=== PATIENT | female | born 1940 | race Caucasian/White ===

== ENCOUNTER → 2017-12-01 | Emergency (ER) | payer OTHER ==
[~2017-12-01] VITALS: Ht 157.5 cm; Wt 86.2 kg
[~2017-12-01] MED LIST: ATENOLOL25 MG; CLONAZEPAM0.5 MG PO; GLUCOTROL10 MG PO; HUMULIN 70100 UNIT/2; HYDROXYZINE HCL50 MG PO; LEVOTHROID25 MCG; LEXAPRO5 MG; LIPITOR20 MG; LISINOPRIL1 GM; METFORMIN HCL500 MG PO; PROSOM2 MG PO; PROTONIX40 MG; RESTORIL30 MG; SEROQUEL50 MG; TRANXENE T-TA3.75 MG PO; VISTARIL25 MG PO; ZANTAC300 MG PO
== END | disposition home or self-care (01) ==
LOC: ER 22:57
DX: E13.649 Other specified diabetes mellitus with hypoglycemia without coma (principal); F06.4 Anxiety disorder due to known physiological condition

== ENCOUNTER 2019-03-28 13:12 | Emergency (ER) | payer OTHER ==
[~2019-03-28] VITALS: Ht 157.5 cm; Wt 69.4 kg
[2019-03-28] MEDS ORDERED: LISINOPRIL10 MG (13:57)
[2019-03-28] MEDS ORDERED: LANTUS SOL100 UNIT/1 (13:59)
[2019-03-28] MEDS ORDERED: METFORMIN HCL1000 M1 (14:00)
[2019-03-28] MEDS ORDERED: JANUVIA100 MG (14:00)
[2019-03-28] MEDS ORDERED: GLIMEPIRIDE2 MG (14:02)
== END 2019-03-28 18:11 | disposition home or self-care (01) ==
LOC: ER 13:12 → EDBD 13:13 → ER 13:13
DX: R42 Dizziness and giddiness (principal)